=== PATIENT | male | born 1985 | race Asian ===

== ENCOUNTER 2022-11-04 22:28 | Emergency (ER) | payer SELFPAY ==
--- NOTE | ~2022-11-04 | CT_ITS ---
EXAMINATION: CT ABDOMEN AND PELVIS WITH CONTRAST CLINICAL INFORMATION: Periumbilical/right lower quadrant pain COMPARISON: None TECHNIQUE: Multidetector volumetric images were obtained from the superior aspect of the liver through the pubic symphysis following administration 85 mL of Omnipaque 350 intravenous contrast. Sagittal and coronal reformatted images were obtained on the technologist's workstation. Oral contrast: No This CT examination was performed using dose optimization techniques as appropriate, variously including the following: *Automated exposure control *Adjustment of mA and/or kV according to patient size (this includes techniques or standardized protocols for targeted exams where dose is matched to indication/reason for exam; i.e. extremities or head) *Use of iterative reconstruction technique DLP: 586 mGy-cm FINDINGS: LUNG BASES: Minimal dependent atelectasis. LIVER, GALLBLADDER, AND BILIARY TREE: The liver is normal in size, shape, and attenuation. No focal hepatic lesion or biliary ductal dilatation is present. The gallbladder is unremarkable with no evidence of radiopaque gallstones, gallbladder wall thickening, or obvious pericholecystic inflammatory changes. PANCREAS: Unremarkable. SPLEEN: Unremarkable. ADRENAL GLANDS: Unremarkable. KIDNEYS AND URETERS: The kidneys are normal in size, shape, and attenuation. No hydronephrosis, hydroureter, or calculi seen. No perinephric stranding. BLADDER: Unremarkable. GASTROINTESTINAL TRACT: There is a diffusely thick-walled appearance of the colon, suspicious for colitis. No evidence of bowel obstruction. The appendix is unremarkable. No free fluid or free air is seen. ABDOMINAL WALL: No significant hernia is appreciated. LYMPH NODES: Normal. VASCULAR: Unremarkable. PELVIC VISCERA: Unremarkable. OSSEOUS STRUCTURES: Unremarkable. CT/CT abdomen pelvis w IV con IMPRESSION: Diffusely thick-walled appearance of the colon, suspicious for colitis which may be infectious or inflammatory. Normal appendix.
[2022-11-04 22:36] VITALS: BP 123/77; PULSE 90; RESP 22; TEMP 36.8; O2SAT 98; BMI 27.3
--- NOTE | 2022-11-04 22:54 | ED_ITS ---
HPI - Abdominal Pain General Chief Complaint: Abdominal Pain Stated Complaint: diarrhea,fever Time Seen by Provider: 11/04/22 22:40 Source: patient Mode of arrival: ambulatory Limitations: no limitations History of Present Illness HPI narrative: Patient comes to the emergency room complaining of periumbilical pain with diarrhea starting approximately 24 hours ago. Patient states that 6 hours prior to the abdominal pain started, he ate seafood. Since then, he has been having cramping abdominal pain. No vomiting, complaining of subjective fever. Related Data Allergies Allergy/AdvReac Type Severity Reaction Status Date / Time No Known Allergies Allergy Verified 11/04/22 22:39 Review of Systems Review of Systems Constitutional : No Weight loss, No Fever, No Chills, No Night Sweats, No Fatigue, No Malaise ENT/Mouth : No Hearing loss, No Ear Pain, No Nasal Congestion, No Sinus Pain, No Hoarseness, No sore throat, No Rhinorrhea, No Swallowing Difficulty Eyes: No Eye Pain, No Swelling, No Redness, No Foreign Body, No Discharge, No Vision Changes Cardiovascular : No Chest Pain, No SOB, No Dyspnea on Exertion, No Orthopnea, No Edema, No Palpitations Respiratory : No Cough, No Sputum, No Wheezing, No Smoke Exposure, No Dyspnea Gastrointestinal : No Nausea, No Vomiting, complaining of diarrhea and abdominal cramping Genitourinary : no irregular bleeding, No Dysuria, No Urinary Frequency, No Hematuria, No Urinary Incontinence, No Urgency, No Flank Pain, No Urinary Flow Changes, No Hesitancy Musculoskeletal : No joint pain, No Myalgias, No Joint Swelling Skin : No Skin Lesions, No rash Neuro : No Weakness, No Numbness, No Paresthesias, No Loss of Consciousness, No Dizziness, No Headache Psych : No Anxiety/Panic, No Depression, No SI/HI/AH/VH, No Social Issues, Heme/Lymph: No Bruising, No Bleeding,No Lymphadenopathy Endocrine : No Polyuria, No Polydipsia, No Temperature Intolerance [facility] Social History Social History Alcohol intake: never Smoked in Last 30 Days: Yes Use of substances other than those prescribed or required for medical reasons: No Advance Directives: No Physical Exam ED Vital Signs: Vital Signs - 24 hr 11/04/22 22:36 11/04/22 23:21 Temperature 98.3 F Pulse Rate 90 Respiratory Rate 22 H 18 Blood Pressure 123/77 Pulse Oximetry 98 Oxygen Delivery Method Room Air BMI result Body Mass Index 27.3 Const Other: Appearance: Alert. Oriented X3. Looks uncomfortable Eyes: Pupils equal, round and reactive to light. ENT: Pharynx normal. Neck: Normal inspection. Neck supple. No lymph nodes noted. No crepitus CVS: Normal heart rate and rhythm. Pulses normal. Normal S1 and S2 Respiratory: No respiratory distress. Breath sounds normal. No Wheezing. No rales Abdomen: Soft and nontender. Complaining of periumbilical and right lower quadrant pain Skin: Skin warm and dry. Normal skin color. Normal skin turgor. Extremities: No lower extremity edema. No Lacerations. No Rash Neuro: Oriented X 3. No motor deficit. No sensory deficit. Moving all extremities. No slurred speech. CN 2 through 12 grossly intact Psych: calm, cooperative, normal affect Course Course Course Narrative: Patient is for a blood cell count is 18.8. T bili AST and ALT slightly elevated. Sodium 131, patient was giving IV fluids. Morphine, Zofran and loperamide. CT scan pending. Depending on the CT scan, patient may need an ultrasound. Sign out given to Dr. Howell Medical Decision Making Lab Data 11/04/22 23:14 11/04/22 23:14 Labs: Lab Results 11/04/22 11/04/22 11/04/22 Range/Units 23:14 23:14 23:41 WBC 18.8 H (4.8-10.8) X10*3/uL RBC 5.46 (4.60-5.80) X10*6/uL Hgb 16.6 (14.0-18.0) g/dl Hct 46.1 (42.0-52.0) % MCV 84.4 (80.0-98.0) fL MCH 30.4 (27.0-33.0) pg MCHC 36.0 (31.0-36.0) g/dl RDW 12.4 (11.0-16.0) % Plt Count 183 (160-400) X10*3/uL MPV 9.0 L (9.4-12.4) fL Absolute Nucleated RBC 0.000 (0.0-0.012) X10*3/uL Nucleated RBC % (auto) 0.0 (0.0-0.2) /100WBC Sodium 131 L (135-145) mmol/L Potassium 3.4 (3.3-5.1) mmol/L Chloride 99 (96-108) mmol/L Carbon Dioxide 21 L (22-29) mmol/L Anion Gap 14 (12-20) BUN 12 (9-16) mg/dL Creatinine 0.79 (0.5-1.4) mg/dL Estim Creat Clear Calc 125.0 Estimated GFR > 60 Random Glucose 126 H (60-115) mg/dL Calcium 8.4 (8.4-10.2) mg/dL Total Bilirubin 1.2 H (0.0-1.0) mg/dL Direct Bilirubin 0.3 (0.0-0.5) mg/dL AST 39 H (5-37) U/L ALT 41 H (0-40) U/L Alkaline Phosphatase 65 (39-117) U/L Total Protein 6.7 (6.5-8.0) g/dL Albumin 4.0 (3.5-5.0) g/dL Lipase 13 (8-78) U/L Urine Color Yellow Urine Appearance Clear Urine pH 6.5 (5.0-9.0) Ur Specific [place] <= 1.005 (1.005-1.025) Urine Protein Negative (Neg-Trace) mg/dL Urine Glucose (UA) Negative (Negative) mg/dL Urine Ketones Negative (Negative) mg/dL Urine Blood Negative (Negative) Urine Nitrite Negative (Negative) Ur Leukocyte Esterase Negative (Negative) Urine RBC 0-2 (0-2) /HPF Urine WBC 0-5 (0-5) /HPF Ur Squamous Epith Cells 0-2 (0-2) /HPF Urine Bacteria None Seen (None Seen) Hyaline Casts 0-2 (0-2) /LPF Medications Administered Discontinued Medications Generic Name Dose Route Start Last Admin Trade Name Freq PRN Reason Stop Dose Admin Sodium Chloride 1,000 mls @ 999 mls/hr 11/04/22 22:52 11/04/22 23:19 Ns IVCONT 11/04/22 23:52 999 mls/hr .Q1H1M ONE Administration Iohexol 85 ml 11/05/22 00:29 11/05/22 00:31 Iohexol 350 Mg/Ml 100 Ml Infus..Btl IV 11/05/22 00:30 85 ml ONCE ONE Administration Loperamide HCl 4 mg 11/04/22 22:52 11/04/22 23:21 Loperamide Hcl 2 Mg Capsule PO 11/04/22 22:53 4 mg ONCE ONE Administration Morphine Sulfate 4 mg 11/04/22 23:04 11/04/22 23:21 Morphine Sulfate 4 Mg/Ml Cartridge IVPUSH 11/04/22 23:05 4 mg ONCE ONE Administration Protocol Ondansetron HCl 4 mg 11/04/22 22:52 11/04/22 23:21 Ondansetron Hcl 4 Mg/2 Ml Vial IVPUSH 11/04/22 22:53 4 mg ONCE ONE Administration Discharge Plan Discharge Clinical Impression: Abdominal pain, Diarrhea Patient Disposition: Still a Patient
[2022-11-04] MEDS: 0.9 % Sodium Chloride 1,000 ML 999 ML IVCONT (23:19)
[2022-11-04 23:21] VITALS: RESP 18
[2022-11-04] MEDS: Morphine Sulfate 4 MG/ML CARTRIDGE IVPUSH (23:21)
[2022-11-04] MEDS: Loperamide HCl 2 MG CAPSULE 4 MG PO (23:21)
[2022-11-04] MEDS: ondansetron HCL 4 MG/2 ML VIAL IVPUSH (23:21)
[2022-11-04 23:23] LABS: Hematocrit 46.1 % (42.0-52.0); Hemoglobin 16.6 g/dl (14.0-18.0); Mean Corpuscular Hemoglobin 30.4 pg (27.0-33.0); Mean Corpuscular Volume 84.4 fL (80.0-98.0); Platelet Count 183 X10*3/uL (160-400); Red Blood Count 5.46 X10*6/uL (4.60-5.80); Red Cell Distribution Width 12.4 % (11.0-16.0); White Blood Count 18.8 X10*3/uL (4.8-10.8)
[2022-11-04 23:49] LABS: Alanine Aminotransferase 41 U/L (0-40); Alkaline Phosphatase 65 U/L (39-117); Anion Gap 14 (12-20); Aspartate Amino Transferase 39 U/L (5-37); Bilirubin Direct 0.3 mg/dL (0.0-0.5); Bilirubin Total 1.2 mg/dL (0.0-1.0); Blood Urea Nitrogen 12 mg/dL (9-16); Calcium 8.4 mg/dL (8.4-10.2); Carbon Dioxide 21 mmol/L (22-29); Chloride 99 mmol/L (96-108); Estimated Glomerular Filt Rate > 60; Glucose Random 126 mg/dL (60-115); Lipase 13 U/L (8-78); Potassium 3.4 mmol/L (3.3-5.1); Sodium 131 mmol/L (135-145); Total Protein 6.7 g/dL (6.5-8.0)
[2022-11-04 23:54] LABS: Appearance Urine Clear; Color Urine Yellow; Glucose Urine UA Negative (Negative); Leukocyte Esterase Urine Negative (Negative); Nitrite Urine Negative (Negative); PH 6.5 (5.0-9.0); Specific Gravity - Urine <= 1.005 (1.005-1.025); Urine Blood Negative (Negative); Urine Ketones Negative (Negative); Urine Protein Negative (Neg-Trace)
[2022-11-04 23:59] LABS: Bacteria Urine None Seen (None Seen); Hyaline Casts Urine 0-2 /LPF (0-2); RBC Urine 0-2 /HPF (0-2); Squamous Epithelial Cell Urine 0-2 /HPF (0-2); WBC Urine 0-5 /HPF (0-5)
[2022-11-05] MEDS: iohexoL 350 MG/ML 100 ML INFUS..BTL 85 ML IV (00:31)
--- NOTE | 2022-11-05 01:30 | PC.NURSE ---
PT A&Ox4. reports 8/10 all over abd pain started last night, reports having multiple episodes of diarrhea, denies N/V. ABD soft, non-tender , + bowel sounds x4.
--- NOTE | 2022-11-05 01:40 | PC.NURSE ---
Blood work drawn and sent to lab. IV established, meds given as documented.
[2022-11-05 02:11] VITALS: BP 112/72; PULSE 102; RESP 16; TEMP 37.7; O2SAT 98
--- NOTE | 2022-11-05 02:11 | PC.NURSE ---
PT reports effectiveness to pain med given. Will CTM.
[2022-11-05] MEDS: cefTRIAXone sodium 1 GM in 0.9 % Sodium Chloride 50 ML IV (03:13)
[2022-11-05] MEDS: metroNIDAZOLE 500 MG TABLET PO (03:14)
[2022-11-05 03:58] VITALS: BP 115/75; PULSE 96; RESP 16; TEMP 38.3; O2SAT 96
== END 2022-11-05 04:15 | disposition home or self-care (01) ==
PROVIDERS: Emergency Provider Emergency Medicine
DX: R10.9 Unspecified abdominal pain (principal); R19.7 Diarrhea, unspecified
CPT/HCPCS: 36415; 74177; 80053; 81001; 82248; 83690; 85027; 96361; 96365; 96375; 99284; 99285; J0696; J2270; J2405; Q9967